=== PATIENT | male | born 1975 | race Caucasian/White ===

== ENCOUNTER 2017-04-03 16:38 | Emergency (ER) | payer OTHER ==
[2017-04-03 16:49] VITALS: BP 151/107
[2017-04-03] MEDS ORDERED: Sodium Chloride 0.9% 10 ML Syringe FLUSH PRN (17:13)
--- NOTE | 2017-04-03 17:21 | EDM.PDOC ---
ED HPI GENERAL MEDICAL PROBLEM - General Chief Complaint: Chest Pain Stated Complaint: CHEST PAIN EARLIER TODAY Time Seen by Provider: 04/03/17 16:55 Source of Information: Reports: Patient, RN Notes Reviewed - History of Present Illness INITIAL COMMENTS - FREE TEXT/NARRATIVE: 42-year-old male comes in having had a couple of very brief episodes of chest pain about 2 or 3 hours ago. 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 These were fairly close together. Had one further episode a short time later. Other than that he's been totally pain-free. He did not get weak, dizzy short of breath or lightheaded with this. No Radiation of discomfort to the shoulder or neck or back. He has history of some borderline hypertension in the past, is not on medication for high blood pressure. No History of diabetes or known history for coronary artery disease. He does smoke Treatments BULLDOGGER: Reports: NSAIDS Other Treatments BULLDOGGER: ASA 235mg at 15:10 - Related Data Allergies Allergy/AdvReac Type Severity Reaction Status Date / Time No Known Allergies Allergy Verified 02/19/15 20:20 Home Meds: Home Meds Sertraline HCl [Zoloft] 150 mg PO DAILY 04/03/17 [History] Past Medical History Cardiovascular History: Reports: Blood Clots/VTE/DVT Respiratory History: Reports: Pneumothorax Neurological History: Reports: Head Trauma Psychiatric History: Reports: Depression - Past Surgical History Other GI Surgeries/Procedures: gastric lavage Social & Family History - Tobacco Use Smoking Status *Q: Current Every Day Smoker Years of Tobacco use: 25 Packs/Tins Daily: 1 - Caffeine Use Caffeine Use: Reports: Coffee, Energy Drinks - Recreational Drug Use Recreational Drug Use: No ED ROS GENERAL - Review of Systems Review Of Systems: See Below Constitutional: Denies: Fever, Chills, Diaphoresis HEENT: Reports: No Symptoms Respiratory: Denies: Shortness of Breath, Pleuritic Chest Pain, Cough Cardiovascular: Reports: Chest Pain (Gone), Palpitations (Possible). Denies: Lightheadedness, Syncope GI/Abdominal: Denies: Abdominal Pain, Nausea, Vomiting Musculoskeletal: Denies: Neck Pain, Shoulder Pain, Back Pain, Leg Pain Skin: Reports: No Symptoms Neurological: Reports: No Symptoms ED EXAM, GENERAL - Physical Exam Exam: See Below General Appearance: Alert, No Apparent Distress Throat/Mouth: Normal Inspection Head: Atraumatic Neck: Supple, Full Range of Motion, Other Respiratory/Chest: No Respiratory Distress, Lungs Clear (No JVD), Normal Breath Sounds Cardiovascular: Regular Rate, Rhythm GI/Abdominal: Soft, Non-Tender Extremities: Normal Inspection. No: Normal Range of Motion, Pedal Edema, Leg Pain Neurological: Alert, Oriented, No Motor/Sensory Deficits Skin Exam: Warm, Dry, Normal Color EKG INTERPRETATION EKG Date: 04/03/17 Rhythm: NSR [place]: Normal P-Wave: Present QRS: Normal ST-T: Normal Course - Vital Signs Last Recorded V/S: Last Vital Signs Temp 98.3 F 04/03/17 16:45 Pulse 78 04/03/17 16:45 Resp 18 04/03/17 16:45 BP 151/107 H 04/03/17 16:45 Pulse Ox 93 L 04/03/17 16:45 - Orders/Labs/Meds Orders: Active Orders 24 hr Category Date Time Status EKG 12 Lead [EKG Documentation Completion] [RC] STAT Care 04/03/17 17:14 Active Peripheral IV Care [RC] . DIRECTED Care 04/03/17 17:14 Active Sodium Chloride 0.9% [Saline Flush] Med 04/03/17 17:13 Active 10 ml FLUSH ASDIRECTED PRN Peripheral IV Insertion Adult [OM.PC] Stat Oth 04/03/17 17:14 Ordered Medication Orders Sodium Chloride (Saline Flush) 10 ml FLUSH ASDIRECTED PRN PRN Reason: Keep Vein Open Last Admin: 04/03/17 17:19 Dose: 10 ml Labs: Laboratory Tests 04/03/17 04/03/17 Range/Units 16:52 16:52 WBC 11.24 H (4.23-9.07) K/mm3 RBC 5.44 (4.63-6.08) M/mm3 Hgb 16.2 (13.7-17.5) gm/L Hct 48.5 (40.1-51.0) % MCV 89.2 (79.0-92.2) fl MCH 29.8 (25.7-32.2) pg MCHC 33.4 (32.2-35.5) g/dl RDW Std Deviation 44.7 H (35.1-43.9) fL Plt Count 233 (163-337) K/mm3 MPV 10.9 (9.4-12.3) fl Neut % (Auto) 61.7 (34.0-67.9) % Lymph % (Auto) 28.5 (21.8-53.1) % [place] % (Auto) 5.6 (5.3-12.2) % Eos % (Auto) 3.4 (0.8-7.0) Baso % (Auto) 0.4 (0.1-1.2) % Neut # (Auto) 6.95 H (1.78-5.38) K/mm3 Lymph # (Auto) 3.20 (1.32-3.57) K/mm3 [place] # (Auto) 0.63 (0.30-0.82) K/mm3 Eos # (Auto) 0.38 (0.04-0.54) K/mm3 Baso # (Auto) 0.04 (0.01-0.08) K/mm3 Sodium 142 (136-145) mEq/L Potassium 3.9 (3.5-5.1) mEq/L Chloride 107 (98-107) mEq/L Carbon Dioxide 26 (21-32) mEq/L Anion Gap 12.9 (5-15) BUN 14 (7-18) mg/dL Creatinine 0.9 (0.7-1.3) mg/dL Est Cr Clr Drug Dosing 120.84 mL/min Estimated GFR (MDRD) > 60 (>60) mL/min BUN/Creatinine Ratio 15.6 (14-18) Glucose 95 (74-106) mg/dL Calcium 8.8 (8.5-10.1) mg/dL Total Bilirubin 0.4 (0.2-1.0) mg/dL AST 16 (15-37) U/L ALT 27 (16-63) U/L Alkaline Phosphatase 159 H (46-116) U/L Troponin I < 0.017 (0.00-0.056) ng/mL Total Protein 7.9 (6.4-8.2) g/dl Albumin 3.5 (3.4-5.0) g/dl Globulin 4.4 gm/dL Albumin/Globulin Ratio 0.8 L (1-2) Meds: Medications Generic Name Dose Route Start Last Admin Trade Name Ryan PRN Reason Stop Dose Admin Sodium Chloride 10 ml 04/03/17 17:13 04/03/17 17:19 Saline Flush FLUSH 10 ml ASDIRECTED PRN Administration Keep Vein Open Departure - Departure Time of Disposition: 18:24 Disposition: Home, Self-Care 01 Condition: Fair Clinical Impression: Palpitations Instructions: Palpitations, [id number] Referrals: PCP,None [Primary Care Provider] - Forms: ED Department Discharge Additional Instructions: Your EKG, troponin cardiac marker, other lab work was all normal while here in the ED today. Your biggest cardiac risk factor right now would be the smoking so do try stop smoking to the best of your ability. Follow-up clinic if having further episodes of chest discomfort or palpitations like what you have experienced today, call [phone] if needed for appointment. return to ED if symptoms worsening in any way - My Orders Last 24 Hours: My Active Orders 04/03/17 17:13 Sodium Chloride 0.9% [Saline Flush] 10 ml FLUSH ASDIRECTED PRN 04/03/17 17:14 EKG 12 Lead [EKG Documentation Completion] [RC] STAT Peripheral IV Care [RC] . DIRECTED Peripheral IV Insertion Adult [OM.PC] Stat - Assessment/Plan Last 24 Hours: My Active Orders 04/03/17 17:13 Sodium Chloride 0.9% [Saline Flush] 10 ml FLUSH ASDIRECTED PRN 04/03/17 17:14 EKG 12 Lead [EKG Documentation Completion] [RC] STAT Peripheral IV Care [RC] . DIRECTED Peripheral IV Insertion Adult [OM.PC] Stat
== END 2017-04-03 18:31 | disposition home or self-care (01) ==
LOC: JD.ED 16:38
DX: R00.2 Palpitations (principal); F17.210 Nicotine dependence, cigarettes, uncomplicated; F32.9 Major depressive disorder, single episode, unspecified; Z79.899 Other long term (current) drug therapy
CPT/HCPCS: 36415; 80053; 84484; 85025; 93005; 99285; J7050; 99284